=== PATIENT | male | born 1940 ===

== ENCOUNTER → 2017-12-02 | Outpatient (CLI) | payer MEDICARE, BC ==
[~2017-12-02] MED LIST: ASPI81CH; CARB150; METO25ER; Norco 5-325 Ta1 EACH PO; TRAZ50; Zofran Odt4 MG SL
== END | disposition home or self-care (01) ==
LOC: PLD 08:02 → LAB SHORT 08:02
DX: C44.519 Basal cell carcinoma of skin of other part of trunk (principal)
CPT/HCPCS: 88305

== ENCOUNTER → 2018-01-13 | Outpatient (CLI) | END | disposition home or self-care (01) ==